=== PATIENT | male | born 1975 | race Caucasian/White ===

== ENCOUNTER → 2016-09-27 | Outpatient (CLI) | payer OTHER ==
[2016-09-27 10:29] LABS: CHLORIDE,CL 108 mmol/L (98-110); SODIUM,NA 139 mmol/L (136-146)
== END ==
LOC: MW.CHFP 09:18
PROVIDERS: ATTEND Family Medicine
DX: I10 Essential (primary) hypertension (principal)
CPT/HCPCS: 36415; 80053; 80061

== ENCOUNTER 2017-02-04 01:41 | Emergency (ER) | payer OTHER ==
[2017-02-04] MEDS ORDERED: Ketorolac 60 MG/2 ML SDV IM ONE (02:05)
--- NOTE | 2017-02-04 02:07 | EDM.PDOC ---
ED HPI GENERAL MEDICAL PROBLEM - General Chief Complaint: ENT Problem Stated Complaint: RIGHT EAR PAIN Time Seen by Provider: 02/04/17 01:56 - History of Present Illness INITIAL COMMENTS - FREE TEXT/NARRATIVE: HISTORY AND PHYSICAL: History of present illness: The patient is a 41-year-old male with a history of hypertension who follows in our family practice clinic and presents with a several hour history of pain to his right ear. Patient denies any trauma to the area and has no discrete hearing loss he has no headache sinus drainage sinus congestion sore throat fever chills nausea or vomiting. The patient also denies any drainage from the ear and has not flying a plane recently or had any [place] or auditory trauma. The patient did not take any [id number] pain medications prior to coming here. Review of systems: As per history of present illness and below otherwise all systems reviewed and negative. Past medical history: As per history of present illness and as reviewed below otherwise noncontributory. Surgical history: As per history of present illness and as reviewed below otherwise noncontributory. Social history: No reported history of drug or alcohol abuse. Family history: As per history of present illness and as reviewed below otherwise noncontributory. Physical exam: Gen.: Well-developed well-nourished man who is nontoxic and speaking clearly in the ED vital signs of an reviewed by me HEENT: Atraumatic, normocephalic, pupils reactive, negative for conjunctival pallor or scleral icterus, mucous membranes moist, throat clear, neck supple, nontender, trachea midline. No discrete sinus tenderness no cervical adenopathy or nuchal rigidity and no mastoid tenderness or redness. The left TM is a good light reflex and is without any external canal swelling but there is cerumen seen. The right ear also has some cerumen but the TM is incredibly dulled and reddened and has no evidence of any gross perforation at this time. Lungs: Clear to auscultation, breath sounds equal bilaterally, chest nontender. Heart: S1S2, regular rate and rhythm no overt murmurs Skin: No evidence of any overt rashes or lesions normal turgor. Pelvis: Deferred Genitourinary: Deferred. Rectal: Deferred. Extremities: Atraumatic, negative for cords or calf pain. Neurovascular unremarkable. Neuro: Awake, alert, oriented. Cranial nerves II through XII unremarkable. Cerebellum unremarkable. Motor and sensory unremarkable throughout. Exam nonfocal. Diagnostics: [] Therapeutics: Toradol Impression: Right otalgia, right otitis media Definitive disposition and diagnosis as appropriate pending reevaluation and review of above. right ear Pain Score (Numeric/FACES): 6 - Related Data Allergies Allergy/AdvReac Type Severity Reaction Status Date / Time No Known Allergies Allergy Verified 02/04/17 01:50 Home Meds: Home Meds Albuterol Sulfate [Albuterol Sulfate HFA] 7 gm IH Q4H PRN #1 hfa.aer.ad [Rx] Lisinopril 10 mg PO DAILY #30 tablet 12/27/13 [Rx] buPROPion HCl [Wellbutrin SR] 150 mg PO DAILY #30 tablet.er 12/27/13 [Rx] Escitalopram [Lexapro] 1 tab PO DAILY 08/13/14 [History] Albuterol Sulfate 1 dose NEB Q4HR PRN 07/10/15 [History] Diclofenac Sodium 1 tab PO BIDMEALS 07/10/15 [History] Fluticasone Propionate [Flovent HFA 100 mcg] 1 inh INH BID 07/10/15 [History] Omeprazole 1 tab PO ACBREAKFAST 07/10/15 [History] Sucralfate [Carafate] 1 dose PO QID 07/10/15 [History] traMADol [Ultram] 100 mg PO DAILY 02/04/17 [History] Past Medical History HEENT History: Reports: None Cardiovascular History: Reports: Hypertension Respiratory History: Reports: Asthma Gastrointestinal History: Reports: None Genitourinary History: Reports: None Musculoskeletal History: Reports: None Neurological History: Reports: None Psychiatric History: Reports: Anxiety, Depression Endocrine/Metabolic History: Reports: None Hematologic History: Reports: None Immunologic History: Reports: None Oncologic (Cancer) History: Reports: None Dermatologic History: Reports: None - Infectious Disease History Infectious Disease History: Reports: None - Past Surgical History Head Surgeries/Procedures: Reports: None Male Surgical History: Reports: Vasectomy Social & Family History - Family History Family Medical History: Noncontributory - Tobacco Use Smoking Status *Q: Current Every Day Smoker Years of Tobacco use: 25 Packs/Tins Daily: 1 - Caffeine Use Caffeine Use: Reports: Coffee - Alcohol Use Days Per Week of Alcohol Use: 0 - Recreational Drug Use Recreational Drug Use: No ED ROS GENERAL - Review of Systems Review Of Systems: ROS reveals no pertinent complaints other than HPI. ED EXAM, GENERAL - Physical Exam Exam: See Below (see dictation) Course - Vital Signs Last Recorded V/S: Last Vital Signs Temp 36.3 C 02/04/17 01:53 Pulse 78 02/04/17 01:53 Resp 18 02/04/17 01:53 BP 134/98 H 02/04/17 01:53 Pulse Ox 98 02/04/17 01:53 Departure - Departure Time of Disposition: 02:07 Disposition: Home, Self-Care 01 Condition: Good Clinical Impression: Otalgia of right ear Otitis media Qualifiers: Otitis media type: unspecified Chronicity: acute - Discharge Information Forms: ED Department Discharge Additional Instructions: The following information is given to patients seen in the emergency department who are being discharged to home. This information is to outline your options for follow-up care. We provide all patients seen in our emergency department with a follow-up referral. The need for follow-up, as well as the timing and circumstances, are variable depending upon the specifics of your emergency department visit. If you don't have a primary care physician on staff, we will provide you with a referral. We always advise you to contact your personal physician following an emergency department visit to inform them of the circumstance of the visit and for follow-up with them and/or the need for any referrals to a consulting specialist. The emergency department will also refer you to a specialist when appropriate. This referral assures that you have the opportunity for followup care with a specialist. All of these measure are taken in an effort to provide you with optimal care, which includes your followup. Under all circumstances we always encourage you to contact your private physician who remains a resource for coordinating your care. When calling for followup care, please make the office aware that this follow-up is from your recent emergency room visit. If for any reason you are refused follow-up, please contact the emergency department at and ask to speak to the emergency department charge nurse. [facility]- [place] [address] Please call and follow-up with the family practice clinic in the next 3-5 days for reevaluation and further care. Use [id number] Tylenol or ibuprofen for discomfort and avoid getting any water or putting any items in your ear even Q-tips. Please take antibiotics until they are finished and you may not feel completely improved until you are finished with antibiotics. Return to ER as needed and as discussed.
[2017-02-04 02:31] VITALS: BP 137/86
== END 2017-02-04 02:33 | disposition home or self-care (01) ==
LOC: MW.ED 01:41
DX: H66.91 Otitis media, unspecified, right ear (principal); I10 Essential (primary) hypertension; J45.909 Unspecified asthma, uncomplicated; F41.9 Anxiety disorder, unspecified; F17.210 Nicotine dependence, cigarettes, uncomplicated; F32.9 Major depressive disorder, single episode, unspecified; Z79.899 Other long term (current) drug therapy
CPT/HCPCS: 96372; 99282; J1885

== ENCOUNTER 2019-05-09 20:32 | Emergency (ER) | payer OTHER ==
[2019-05-09 20:50] VITALS: BP 135/92; PULSE 82
--- NOTE | 2019-05-09 20:58 | EDM.PDOC ---
ED HPI GENERAL MEDICAL PROBLEM - General Chief Complaint: General Stated Complaint: LT SIDE OF FACE IS SWOLLEN Time Seen by Provider: 05/09/19 20:57 Source of Information: Reports: Patient History Limitations: Reports: No Limitations - History of Present Illness INITIAL COMMENTS - FREE TEXT/NARRATIVE: HISTORY AND PHYSICAL: History of present illness: Patient is a 43-year-old male presents to the ED with complaint of swelling to the left side of his face. He states it started yesterday. He has had cold symptoms with nasal and sinus congestion x 2-3 weeks. He denies fevers, chills, nausea, vomiting, headache, tooth pain, eye pain or pain with eye movements, visual changes. Review of systems: As per history of present illness and below otherwise all systems reviewed and negative. Past medical history: As per history of present illness and as reviewed below otherwise noncontributory. Surgical history: As per history of present illness and as reviewed below otherwise noncontributory. Social history: No reported history of drug or alcohol abuse. Family history: As per history of present illness and as reviewed below otherwise noncontributory. Physical exam: General: Patient sitting comfortably in no acute distress and nontoxic appearing HEENT: There is slight erythema and induration to the left maxillary area. There is an area of fluctuance and purulence noted to the hard palate in the mouth. No dental pain on percussion. Atraumatic, normocephalic, pupils reactive , negative for conjunctival pallor or scleral icterus, mucous membranes moist, throat clear, neck supple, nontender, trachea midline. No meningeal signs. Lungs: Clear to auscultation, breath sounds equal bilaterally, chest nontender. Heart: S1S2, regular, negative for clicks, rubs, or overt murmur. Abdomen: Soft, nondistended, nontender. Negative for masses or hepatosplenomegaly. Negative for costovertebral tenderness. No rigidity, rebound , guarding. Pelvis: Stable nontender. Genitourinary: Deferred. Rectal: Deferred. Extremities: Atraumatic, negative for cords or calf pain. Neurovascular unremarkable. Neuro: Awake, alert, oriented. Cranial nerves II through XII unremarkable. Cerebellum unremarkable. Motor and sensory unremarkable throughout. Exam nonfocal. Notes: Diagnostics: [] Therapeutics: Augmentin Prescriptions: Impression: Cellulitis, acute sinusitis Definitive disposition and diagnosis as appropriate pending reevaluation and review of above. Left Face/Facial Pain Score (Numeric/FACES): 4 - Related Data Allergies Allergy/AdvReac Type Severity Reaction Status Date / Time No Known Allergies Allergy Verified 05/09/19 20:51 Home Meds: Home Meds Albuterol Sulfate [Albuterol Sulfate HFA] 7 gm IH Q4H PRN #1 hfa.aer.ad [Rx] Lisinopril 10 mg PO DAILY #30 tablet 12/27/13 [Rx] buPROPion HCl [Wellbutrin SR] 150 mg PO DAILY #30 tablet.er 12/27/13 [Rx] Albuterol Sulfate 1 dose NEB Q4HR PRN 07/10/15 [History] Fluticasone Propionate [Flovent HFA 100 mcg] 1 inh INH BID 07/10/15 [History] Acetaminophen/Codeine [Tylenol with Codeine No.3 300MG/30MG] 1 mg PO BID [History] Celecoxib 200 mg PO BID 05/09/19 [History] Pramipexole [Mirapex] 0.25 mg PO BEDTIME 05/09/19 [History] Rosuvastatin [Crestor] 10 mg PO BEDTIME 05/09/19 [History] amLODIPine [Norvasc] 5 mg PO DAILY 05/09/19 [History] Past Medical History HEENT History: Reports: None Cardiovascular History: Reports: Hypertension Respiratory History: Reports: Asthma Gastrointestinal History: Reports: None Genitourinary History: Reports: None Musculoskeletal History: Reports: None Neurological History: Reports: None Psychiatric History: Reports: Anxiety, Depression Endocrine/Metabolic History: Reports: None Hematologic History: Reports: None Immunologic History: Reports: None Oncologic (Cancer) History: Reports: None Dermatologic History: Reports: None - Infectious Disease History Infectious Disease History: Reports: None - Past Surgical History Head Surgeries/Procedures: Reports: None Male Surgical History: Reports: Vasectomy Social & Family History - Family History Family Medical History: Noncontributory - Tobacco Use Smoking Status *Q: Current Some Day Smoker Years of Tobacco use: 25 Packs/Tins Daily: 0.1 - Caffeine Use Caffeine Use: Reports: Coffee - Recreational Drug Use Recreational Drug Use: No ED ROS GENERAL - Review of Systems Review Of Systems: ROS reveals no pertinent complaints other than HPI. ED EXAM, GENERAL - Physical Exam Exam: See Below (see dictation) Course - Vital Signs Last Recorded V/S: Last Vital Signs Temp 96.7 F 05/09/19 20:49 Pulse 82 05/09/19 20:49 Resp 18 05/09/19 20:49 BP 135/92 H 05/09/19 20:49 Pulse Ox 95 05/09/19 20:49 Departure - Departure Time of Disposition: 21:03 Disposition: Home, Self-Care 01 Condition: Good Clinical Impression: Cellulitis, Sinusitis - Discharge Information Referrals: Aris Jama MD [Primary Care Provider] - Forms: ED Department Discharge Additional Instructions: The following information is given to patients seen in the emergency department who are being discharged to home. This information is to outline your options for follow-up care. We provide all patients seen in our emergency department with a follow-up referral. The need for follow-up, as well as the timing and circumstances, are variable depending upon the specifics of your emergency department visit. If you don't have a primary care physician on staff, we will provide you with a referral. We always advise you to contact your personal physician following an emergency department visit to inform them of the circumstance of the visit and for follow-up with them and/or the need for any referrals to a consulting specialist. The emergency department will also refer you to a specialist when appropriate. This referral assures that you have the opportunity for follow-up care with a specialist. All of these measure are taken in an effort to provide you with optimal care, which includes your follow-up. Under all circumstances we always encourage you to contact your private physician who remains a resource for coordinating your care. When calling for follow-up care, please make the office aware that this follow-up is from your recent emergency room visit. If for any reason you are refused follow-up, please contact the [facility] Emergency Department at and asked to speak to the emergency department charge nurse. [facility] [address] [place] [address] [id number] [address] [id number] Take antibiotic as instructed Follow up with ENT within the next few days Return to ED as needed as discussed
== END 2019-05-09 21:24 | disposition home or self-care (01) ==
LOC: MW.ED 20:32
DX: J01.90 Acute sinusitis, unspecified (principal); L03.211 Cellulitis of face; I10 Essential (primary) hypertension; F17.210 Nicotine dependence, cigarettes, uncomplicated; F32.9 Major depressive disorder, single episode, unspecified; J45.909 Unspecified asthma, uncomplicated; Z79.51 Long term (current) use of inhaled steroids; Z79.899 Other long term (current) drug therapy
CPT/HCPCS: 99283

== ENCOUNTER 2022-06-13 20:12 | Emergency (ER) | payer OTHER ==
[2022-06-13] MEDS ORDERED: Cyclobenzaprine 10 MG Tab PO ONE (20:35)
[2022-06-13] MEDS ORDERED: Ibuprofen 400 MG Tab PO ONE (20:36)
[2022-06-13] MEDS ORDERED: Acetaminophen 325 MG Tab PO ONE (20:36)
[2022-06-13] MEDS ORDERED: Lidocaine 5% 700 MG Patch TOP ONE (20:36)
[2022-06-13] MEDS ORDERED: Acetaminophen 500 MG Tab ONE (20:44)
[2022-06-13] MEDS ORDERED: Acetaminophen 500 MG Tab PO ONE (20:45)
[2022-06-13 22:08] VITALS: BP 150/92; PULSE 74
== END 2022-06-13 22:09 | disposition home or self-care (01) ==
LOC: MW.ED 20:12
DX: M54.50 Low back pain, unspecified (principal); I10 Essential (primary) hypertension; Z79.899 Other long term (current) drug therapy
CPT/HCPCS: 99283; A9270-GY

== ENCOUNTER 2023-01-29 17:17 | Emergency (ER) | payer BC, OTHER ==
[2023-01-29] MEDS ORDERED: Sodium Chloride 0.9% 1,000 ML IV ONE (17:19)
[2023-01-29 17:39] LABS: BASOPHILS PERCENT AUTO 0.3 % (0.0-1.5); EOSINOPHILS ABSOLUTE AUTO 0.1 K/uL (0.0-0.7); EOSINOPHILS PERCENT AUTO 0.6 % (0.0-7.0); HEMATOCRIT 38.4 % (38.0-50.0); HEMOGLOBIN 13.3 g/dL (13.0-17.0); LYMPHOCYTES PERCENT AUTO 22.6 % (16.0-40.0); MEAN CORPUSCULAR HEMOGLOBIN 29.3 pg (27.0-32.0); MEAN CORPUSCULAR HGB CONC 34.6 g/dL (31.0-37.0); MEAN CORPUSCULAR VOLUME 84.6 fL (80.0-98.0); MONOCYTES ABSOLUTE AUTO 0.5 K/uL (0.0-0.8); MONOCYTES PERCENT AUTO 5.8 % (0.0-15.0); NEUTROPHILS ABSOLUTE AUTO 6.3 K/uL (1.4-5.7); NEUTROPHILS PERCENT AUTO 70.7 % (48.0-80.0); NRBC ABSOLUTE 0 K/uL; PLATELET COUNT,PLT 226 K/uL (150-400); RED BLOOD CELL COUNT 4.54 M/uL (4.50-5.90); WHITE BLOOD CELL COUNT,WBC 8.85 K/uL (4.0-11.0)
[2023-01-29 18:06] LABS: APPEARANCE,URINE CLEAR; BILIRUBIN,URINE NEGATIVE (NEGATIVE); COLOR,URINE YELLOW; GLUCOSE,URINE NEGATIVE (NEGATIVE); KETONES,URINE NEGATIVE (NEGATIVE); LEUKOCYTE ESTERASE,URINE NEGATIVE (NEGATIVE); NITRITE,URINE NEGATIVE (NEGATIVE); OCCULT BLOOD,URINE NEGATIVE (NEGATIVE); PH,URINE 7.5 (5.0-8.0); PROTEIN,URINE NEGATIVE (NEGATIVE); UROBILINOGEN,URINE 0.2 EU/dL (<2.0)
[2023-01-29 18:11] LABS: A/G RATIO 1.2 (0.9-1.6); ACETAMINOPHEN <2.0 ug/mL; ALANINE AMINOTRANSFERASE,ALT 20 IU/L (14-63); ALBUMIN 3.9 g/dL (3.4-5.0); ALKALINE PHOSPHATASE 90 U/L (46-116); ASPARTATE AMNIOTRANSFERASE,AST 17 IU/L (15-37); BILIRUBIN TOTAL 0.4 mg/dL (0.2-1.0); BLOOD UREA NITROGEN,BUN 14 mg/dL (7.0-18.0); CALCIUM 8.7 mg/dL (8.5-10.1); CARBON DIOXIDE,CO2 22.3 mmol/L (21.0-32.0); CHLORIDE,CL 102 mmol/L (98-107); CREATININE 0.9 mg/dL (0.8-1.3); EST CRCL DRUG DOSING (CG) 107.02 mL/min; GLUCOSE RANDOM 119 mg/dL (74-106); MAGNESIUM 1.9 mg/dL (1.8-2.4); PROTEIN TOTAL,TP 7.1 g/dL (6.4-8.2); SALICYLATE 4.9 mg/dL (0.0-20.0); SODIUM,NA 138 mmol/L (136-148); TSH ULTRASENSITIVE 0.32 uIU/mL (0.36-3.74)
[2023-01-29 18:16] LABS: AMPHETAMINES SCREEN, URINE PRESUMPTIVE POSITIVE (CUTOFF=500); BARBITURATE SCREEN,URINE NEGATIVE (CUTOFF=200); BENZODIAZEPINES SCREEN,URINE NEGATIVE (CUTOFF=150); BUPRENORPHINE SCREEN,URINE NEGATIVE (CUTOFF=10); METHADONE SCREEN, URINE NEGATIVE (CUTOFF=200); METHAMPHETAMINES SCREEN, URINE NEGATIVE (CUTOFF=500); OXYCODONE SCREEN,URINE NEGATIVE (CUT0FF=100); PCP SCREEN,URINE NEGATIVE (CUTOFF=25); PROPOXYPHENE SCREEN,URINE NEGATIVE (CUTOFF=300); THC SCREEN,URINE 20 NG/ML NEGATIVE (CUTOFF=50)
[2023-01-29 18:17] LABS: ESTIMATED GFR 107 mL/min (>60); ETHANOL BLOOD MEDICAL < 3.0 mg/dL
[2023-01-30] MEDS ORDERED: Nicotine 21 MG/24 Hr Patch TRDERM ONE (00:29)
[2023-01-30] MEDS ORDERED: Acetaminophen 500 MG Tab PO ONE (03:16)
[2023-01-30 03:33] VITALS: BP 124/72; PULSE 92
== END 2023-01-30 03:40 | disposition home or self-care (01) ==
LOC: MW.ED 17:17
DX: T42.6X2A Poisoning by other antiepileptic and sedative-hypnotic drugs, intentional self-harm, initial encounter (principal); I10 Essential (primary) hypertension; J45.909 Unspecified asthma, uncomplicated; F17.210 Nicotine dependence, cigarettes, uncomplicated; Z79.899 Other long term (current) drug therapy
CPT/HCPCS: 36415; 80053; 80143; 80179; 80305; 80307; 81003; 83735; 84443; 85025; 93005; 96360; 99285; A9270; J7030; 93010; 99284

== ENCOUNTER 2023-11-25 19:27 | Emergency (ER) | payer SELFPAY ==
[2023-11-25] MEDS: Ketorolac 30 MG/ML SDV IM ONE (19:51)
[2023-11-25] MEDS: Bupivacaine 0.5% 10 ML SDV INJECT ONE (19:52)
[2023-11-25] MEDS: Lidocaine 1% 5 ML VIAL INJECT ONE (19:52)
[2023-11-25] MEDS: Diazepam 5 MG Tab PO ONE (19:52)
[2023-11-25 20:19] VITALS: BP 166/112; PULSE 68
== END 2023-11-25 20:19 | disposition home or self-care (01) ==
LOC: MW.ED 19:27
DX: M54.42 Lumbago with sciatica, left side (principal); I10 Essential (primary) hypertension; Z79.899 Other long term (current) drug therapy
CPT/HCPCS: 20552; 96372; 99283; A9270; J0665; J1885; J3490

== ENCOUNTER 2024-01-06 05:23 | Emergency (ER) | payer SELFPAY ==
[2024-01-06] MEDS: HYDROmorphone 1 MG/ML Syringe IM ONE (05:36)
[2024-01-06] MEDS: Ketorolac 30 MG/ML SDV IM ONE (05:37)
[2024-01-06] MEDS: HYDROmorphone 1 MG/ML Syringe IVPUSH ONE (05:39)
[2024-01-06] MEDS: Ketorolac 30 MG/ML SDV IVPUSH ONE (05:39)
[2024-01-06 06:30] VITALS: BP 140/90; PULSE 66
== END 2024-01-06 06:15 | disposition home or self-care (01) ==
LOC: MW.ED 05:23
DX: G89.29 Other chronic pain (principal); M54.50 Low back pain, unspecified; I10 Essential (primary) hypertension; J45.909 Unspecified asthma, uncomplicated; E78.00 Pure hypercholesterolemia, unspecified; Z75.8 Other problems related to medical facilities and other health care; Z79.899 Other long term (current) drug therapy
CPT/HCPCS: 96374; 96375; 99283; J1170; J1885; 99284

== ENCOUNTER 2025-01-01 10:10 | Emergency (ER) | payer BC ==
[2025-01-01] MEDS: Sodium Chloride 0.9% 1,000 ML IV ONE (10:40)
[2025-01-01 10:49] LABS: BASOPHILS ABSOLUTE AUTO 0.06 K/uL (0.00-0.20); BASOPHILS PERCENT AUTO 0.5 % (0.0-1.0); EOSINOPHILS ABSOLUTE AUTO 0.07 K/uL (0.00-0.45); EOSINOPHILS PERCENT AUTO 0.6 % (0.0-6.0); HEMATOCRIT 39.9 % (42.0-52.0); HEMOGLOBIN 13.4 g/dL (14.0-18.0); IMMATURE GRAN ABSOLUTE AUTO 0.03 K/uL (0.00-0.05); IMMATURE GRAN PERCENT AUTO 0.2 % (0.0-0.4); LYMPHOCYTES ABSOLUTE AUTO 1.73 K/uL (1.00-4.80); LYMPHOCYTES PERCENT AUTO 14.2 % (24.0-44.0); MEAN CORPUSCULAR HEMOGLOBIN 26.9 pg (28.0-32.0); MEAN CORPUSCULAR HGB CONC 33.6 g/dL (32.0-36.0); MEAN CORPUSCULAR VOLUME 80.1 fL (83.0-99.0); MEAN PLATELET VOLUME 9.5 fL (9.4-12.4); MONOCYTES ABSOLUTE AUTO 0.79 K/uL (0.00-0.80); MONOCYTES PERCENT AUTO 6.5 % (0.0-8.0); NEUTROPHILS ABSOLUTE AUTO 9.49 K/uL (1.80-7.70); PLATELET COUNT,PLT 246 K/uL (150-400); RED BLOOD CELL COUNT 4.98 M/uL (4.52-5.90); WHITE BLOOD CELL COUNT,WBC 12.17 K/uL (3.9-11.3)
[2025-01-01 11:19] LABS: A/G RATIO 1.1 (0.9-1.6); ALBUMIN 3.7 g/dL (3.4-5.0); BILIRUBIN TOTAL 0.2 mg/dL (0.2-1.0); CALCIUM 9.4 mg/dL (8.5-10.1); CARBON DIOXIDE,CO2 27.3 mmol/L (21.0-32.0); CREATININE 0.9 mg/dL (0.8-1.3); EST CRCL DRUG DOSING (CG) 104.77 mL/min; POTASSIUM,K 4.6 mmol/L (3.5-5.1); PROTEIN TOTAL,TP 7.2 g/dL (6.4-8.2); TSH ULTRASENSITIVE 0.96 uIU/mL (0.36-3.74)
[2025-01-01] MEDS: Acetaminophen/oxyCODONE 325-5 MG Tab PO ONE (11:32)
[2025-01-01 11:39] LABS: APPEARANCE,URINE CLEAR; BILIRUBIN,URINE NEGATIVE (NEGATIVE); GLUCOSE,URINE NEGATIVE (NEGATIVE); KETONES,URINE NEGATIVE (NEGATIVE); LEUKOCYTE ESTERASE,URINE NEGATIVE (NEGATIVE); NITRITE,URINE NEGATIVE (NEGATIVE); OCCULT BLOOD,URINE NEGATIVE (NEGATIVE); PROTEIN,URINE NEGATIVE (NEGATIVE); UROBILINOGEN,URINE 0.2 EU/dL (<2.0)
[2025-01-01 11:40] LABS: COLOR,URINE STRAW
[2025-01-01] MEDS: Iopamidol 755 MG/ML 500 ML Multipack Bottle IVPUSH STA (11:42)
[2025-01-01 12:58] VITALS: BP 132/84; PULSE 78
== END 2025-01-01 12:56 | disposition home or self-care (01) ==
LOC: MW.ED 10:10
DX: R06.02 Shortness of breath (principal); R53.1 Weakness; I10 Essential (primary) hypertension; J45.909 Unspecified asthma, uncomplicated; Z79.899 Other long term (current) drug therapy; Z75.3 Unavailability and inaccessibility of health-care facilities
CPT/HCPCS: 36415; 71045; 71275; 80053; 81003; 83880; 84443; 84484; 85025; 85379; 93005; 96360; 99285; A9270; J7030; Q9967; 93010; 99283